=== PATIENT | female | born 1945 | race African-American/Black ===

== ENCOUNTER 2018-03-10 13:30 | Inpatient (IN) | payer OTHER ==
[~2018-03-10] VITALS: Ht 177.8 cm; Wt 79.3 kg
[2018-03-10 13:38] VITALS: Ht 177.8 cm; Wt 79.3 kg
[2018-03-10 14:53] LABS: CALCIUM 8.9 mg/dL (8.5-10.1); CARBON DIOXIDE 30.1 mmol/L (21-32); CHLORIDE SERUM 104 mmol/L (98-107); CREATININE SERUM 1.1 mg/dL (0.6-1.0); GLUCOSE SERUM 102 mg/dL (74-106); POTASSIUM SERUM 4.1 mmol/L (3.5-5.1); SODIUM SERUM 142 mmol/L (136-145)
[2018-03-10 14:59] LABS: ALBUMIN 3.8 g/dL (3.4-5.0); ALKALINE PHOSPHATASE 78 U/L (46-116); ALT/SGPT 20 U/L (14-59); AST/SGOT 21 U/L (15-37); BILIRUBIN TOTAL 0.4 mg/dL (0.20-1.00); CHOLESTEROL 176 mg/dL (<200)
[2018-03-10 15:02] LABS: BASOPHIL % 0.4 % (0-2); PLATELET COUNT 220 x10^3mcL (130-400); RED CELL DISTRIBUTION WIDTH 14.4 % (11.5-14.5)
[2018-03-10] MEDS ORDERED: AMLODIPINE BESY10 M2 PO (15:10)
[2018-03-10 15:56] LABS: microscopic required? YES; urine erythrocyte TRACE (NEGATIVE)
[2018-03-10 16:03] LABS: AMPHETAMINE QUAL UR NONE DETECTED (NEG <=1000)
[2018-03-10 16:28] LABS: MAGNESIUM 2.1 mg/dL (1.8-2.4); PHOSPHOROUS 3.5 mg/dL (2.5-4.9)
[2018-03-10 16:30] LABS: CHOLESTEROL/HDL RATIO 2.5
[2018-03-10 16:39] LABS: T3 TOTAL 0.75 ng/mL
[2018-03-10 17:25] VITALS: BP 211/110
[2018-03-10 17:30] LABS: FREE THYROXINE INDEX 2.7 ug/dL (1.4-4.5); T4(THYROXINE) 7.4 ug/dL (4.7-13.3)
[2018-03-10 18:45] VITALS: BP 175/94
[2018-03-10 19:30] VITALS: BP 158/82
[2018-03-10 23:30] VITALS: BP 155/76
[2018-03-11 04:04] VITALS: BP 153/75
[2018-03-11 05:45] LABS: BASOPHIL % 0.7 % (0-2); PLATELET COUNT 224 x10^3mcL (130-400); RED CELL DISTRIBUTION WIDTH 14.4 % (11.5-14.5)
[2018-03-11 05:51] LABS: CALCIUM 9.1 mg/dL (8.5-10.1); CARBON DIOXIDE 26.1 mmol/L (21-32); CHLORIDE SERUM 103 mmol/L (98-107); CREATININE SERUM 1.1 mg/dL (0.6-1.0); GLUCOSE SERUM 123 mg/dL (74-106); PHOSPHOROUS 3.9 mg/dL (2.5-4.9); POTASSIUM SERUM 3.2 mmol/L (3.5-5.1); SODIUM SERUM 139 mmol/L (136-145)
[2018-03-11 07:55] VITALS: BP 128/70
[2018-03-11 11:47] VITALS: BP 162/48
[2018-03-11 16:12] VITALS: BP 130/78
[2018-03-11 20:38] VITALS: BP 140/78
[2018-03-12 05:33] VITALS: BP 147/83
[2018-03-12 07:53] LABS: BASOPHIL % 1.8 % (0-2); PLATELET COUNT 205 x10^3mcL (130-400); RED CELL DISTRIBUTION WIDTH 14.4 % (11.5-14.5)
[2018-03-12 08:04] LABS: CARBON DIOXIDE 27.8 mmol/L (21-32); CHLORIDE SERUM 106 mmol/L (98-107); GLUCOSE SERUM 107 mg/dL (74-106); POTASSIUM SERUM 4.8 mmol/L (3.5-5.1); SODIUM SERUM 141 mmol/L (136-145)
[2018-03-12 09:37] VITALS: BP 140/74
[2018-03-12 12:33] VITALS: BP 129/66
== END 2018-03-12 14:01 | disposition home or self-care (01) | DRG 77 ==
LOC: ED 13:30 → IC 14:54 → DU 14:54 → IC 16:52 → DU 03-11 15:35
PROVIDERS: Family Medicine; Specialist
DX: I67.4 Hypertensive encephalopathy (principal); N17.0 Acute kidney failure with tubular necrosis; Z91.14 Patient's other noncompliance with medication regimen; I10 Essential (primary) hypertension; I16.0 Hypertensive urgency; E86.0 Dehydration; E87.6 Hypokalemia; Z90.710 Acquired absence of both cervix and uterus
CPT/HCPCS: 36600; 82962; 83880; 84439; G0480; J0360; J3490; J7030; Q0092

== ENCOUNTER 2018-10-25 09:58 | Inpatient (IN) | payer OTHER ==
[~2018-10-25] VITALS: Ht 177.8 cm; Wt 78.0 kg
[~2018-10-25 09:58] MED LIST: AMLODIPINE BESY10 M2 PO
[2018-10-25 12:44] LABS: BASOPHIL % 0.3 % (0-2); PLATELET COUNT 199 x10^3mcL (130-400)
[2018-10-25 12:45] LABS: CALCIUM 8.7 mg/dL (8.5-10.1); CARBON DIOXIDE 30.2 mmol/L (21-32); CHLORIDE SERUM 104 mmol/L (98-107); GLUCOSE SERUM 91 mg/dL (74-106); POTASSIUM SERUM 4.6 mmol/L (3.5-5.1); SODIUM SERUM 139 mmol/L (136-145)
[2018-10-25 12:50] LABS: ALBUMIN 3.4 g/dL (3.4-5.0); ALKALINE PHOSPHATASE 70 U/L (46-116); ALT/SGPT 17 U/L (14-59); AST/SGOT 15 U/L (15-37); BILIRUBIN TOTAL 0.51 mg/dL (0.20-1.00); TOTAL PROTEIN, SERUM 7.4 g/dL (6.4-8.2)
[2018-10-25 12:51] LABS: RED CELL DISTRIBUTION WIDTH 15.9 % (11.5-14.5)
[2018-10-25 16:15] LABS: microscopic required? YES; urine erythrocyte TRACE (NEGATIVE)
[2018-10-25 16:24] LABS: PHOSPHOROUS 3.8 mg/dL (2.5-4.9)
[2018-10-25 16:33] LABS: AMPHETAMINE QUAL UR NONE DETECTED (See below)
[2018-10-25 17:03] VITALS: BP 185/87
[2018-10-25 17:05] VITALS: Ht 177.8 cm; Wt 78.0 kg
[2018-10-25 17:29] VITALS: BP 167/78
[2018-10-25 20:28] VITALS: BP 135/68
[2018-10-26 05:16] VITALS: BP 139/76
[2018-10-26 06:22] LABS: BASOPHIL % 0.2 % (0-2); PLATELET COUNT 186 x10^3mcL (130-400)
[2018-10-26 06:31] LABS: CALCIUM 8.4 mg/dL (8.5-10.1); CARBON DIOXIDE 28.9 mmol/L (21-32); CHLORIDE SERUM 105 mmol/L (98-107); GLUCOSE SERUM 100 mg/dL (74-106); PHOSPHOROUS 4.1 mg/dL (2.5-4.9); SODIUM SERUM 140 mmol/L (136-145)
[2018-10-26 07:26] LABS: RED CELL DISTRIBUTION WIDTH 15.6 % (11.5-14.5)
[2018-10-26 10:19] VITALS: BP 134/79
[2018-10-26 13:23] VITALS: BP 169/80
[2018-10-26 18:27] VITALS: BP 138/69
[2018-10-26 21:24] VITALS: BP 155/81
[2018-10-27 05:52] VITALS: BP 143/82
[2018-10-27 06:30] LABS: BASOPHIL % 0.7 % (0-2); PLATELET COUNT 192 x10^3mcL (130-400)
[2018-10-27 06:49] LABS: CALCIUM 9.1 mg/dL (8.5-10.1); CHLORIDE SERUM 105 mmol/L (98-107); GLUCOSE SERUM 111 mg/dL (74-106); MAGNESIUM 1.9 mg/dL (1.8-2.4); PHOSPHOROUS 3.7 mg/dL (2.5-4.9); POTASSIUM SERUM 3.8 mmol/L (3.5-5.1); SODIUM SERUM 139 mmol/L (136-145)
[2018-10-27 06:51] LABS: RED CELL DISTRIBUTION WIDTH 15.7 % (11.5-14.5)
[2018-10-27 11:47] VITALS: BP 153/71
[2018-10-27 14:20] VITALS: BP 153/71
[2018-10-27 14:49] VITALS: BP 153/71
[2018-10-27 16:29] VITALS: BP 153/71
== END 2018-10-27 17:16 | disposition home or self-care (01) | DRG 378 ==
LOC: ED 09:58 → MU 15:03 → DU 15:03
PROVIDERS: Emergency Medicine; Internal Medicine; ADMIT Family Medicine
PROC: 0W3P8ZZ Control Bleeding in Gastrointestinal Tract, Via Natural or Artificial Opening Endoscopic (ICD-10-PCS; principal; 2018-10-27 11:30)
PROC: 0DBM8ZZ Excision of Descending Colon, Via Natural or Artificial Opening Endoscopic (ICD-10-PCS; 2018-10-27 11:30)
DX: K57.31 Diverticulosis of large intestine without perforation or abscess with bleeding (principal); J98.11 Atelectasis; D12.4 Benign neoplasm of descending colon; D50.0 Iron deficiency anemia secondary to blood loss (chronic); I10 Essential (primary) hypertension; Z68.26 Body mass index [BMI] 26.0-26.9, adult; Z87.11 Personal history of peptic ulcer disease; Z91.19 Patient's noncompliance with other medical treatment and regimen
CPT/HCPCS: 45378; 94150; J0696; J1200; J1610; J2250; J2310; J3010; J3490; J7040; Q0092